=== PATIENT | female | born 1955 | race Caucasian/White ===

== ENCOUNTER 2023-04-15 11:54 | Emergency (ER) | payer MEDICARE, BC ==
[2023-04-15 12:10] VITALS: BP 130/76; O2SAT 98
--- NOTE | 2023-04-15 12:32 | ED Physician Documentation ---
PD HPI SKIN - Stated complaint Stated Complaint: - Chief complaint Chief Complaint: Wound - History obtained from History obtained from: Patient - History of Present Illness Timing - onset: How many days ago (3) Timing - duration: Days (3) Timing - details: Gradual onset, Still present (noted redness, tender swelling right pubic area 3 days ago that has increased. It did have some drainage last night and has continued to weep greyish, odorous fluid into today. Went to Walk In and referred to ER for potential I&D.) Review of Systems Constitutional: denies: Fever, Chills GI: denies: Nausea, Vomiting PD PAST MEDICAL HISTORY - Present Medications Home Medications: Ambulatory Orders Medication Instructions Recorded Confirmed Atorvastatin [Lipitor] 20 mg PO DAILY 04/15/23 Doxycycline Hyclate 100 mg PO BID 7 Days #14 cap 04/15/23 Levothyroxine [Synthroid] 120 mcg PO DAILY 04/15/23 Lisinopril [Zestril] 20 mg PO DAILY 04/15/23 04/15/23 - Allergies Allergies/Adverse Reactions: Allergies Allergy/AdvReac Type Severity Reaction Status Date / Time No Known Drug Allergies Allergy Verified 04/15/23 12:10 PD ED PE NORMAL - Vitals Vital signs reviewed: Yes - General General: Alert and oriented X 3, No acute distress, Well developed/nourished - Cardiac Cardiac: RRR, No murmur - Respiratory Respiratory: Clear bilaterally - Abdomen Abdomen: Normal bowel sounds, Non distended, Other (abd itself is not tender. The pubis area with redness and swelling acors the pubis . There is induration, firmness and local tender about 5-6 cm diameter right side. There is poiting mildly of the swelling with mild draiange with palpation of odorous ambrose fluid. Culture obtained. ) - Derm Derm: Normal color, Warm and dry, Other (bedside US of the area showed inflammation of tissue with fluid tracking in fatty tissue but no localized fluid collections. ) - Neuro Neuro: Alert and oriented X 3, No motor deficit, Normal speech Results - Vitals Vitals: Vital Signs - 24 hr 04/15/23 04/15/23 12:03 14:00 Temperature 36.6 C Heart Rate 77 Respiratory 18 18 Rate Blood Pressure 130/76 O2 Saturation 98 Oxygen O2 Source Room air - Labs Labs: Microbiology 04/15/23 13:11 Wound Culture - Preliminary Abdomen PD Medical Decision Making - ED course Complexity details: reviewed results (bedside U/S by me showing inflammation but no residual fluid collection. discussed with patient that fluid might recollect and need I&D but seems spontaneously draining enough for now. ), considered differential (seeems c/w abscess presume initially at seat gland at pubis. Not labial. Area of redness is across much of pubic area but firm/indurated is about 5-6 cm without fluctuance. Skin small opening with mild drainage, cultured. Bedside U/S showed swelling/induration but no fluid pocket for draining.), d/w patient ED course: presume likely staph and will target abx that way. Departure - Departure Disposition: 01 Home, Self Care Clinical Impression: Abscess, Soft tissue abscess of inguinal region Condition: Stable Record reviewed to determine appropriate education?: Yes Prescriptions: Doxycycline Hyclate 100 mg PO BID 7 Days #14 cap Comments: On bedside ultrasound, I could see a lot of inflammation in through that area but I did not see any localized fluid pockets. It was more within the tissue (sort of like a soaked sponge). As such did not see a region that would need incision and drainage. There is some drainage coming out from the tissue already. It likely decompressed itself the for the most part this morning. There is obviously still infection in the area. Use doxycycline antibiotic twice daily for the next week. Warm moist compresses to the area periodically to improve blood flow and help promote drainage. Gentle massaging around the area to promote any drainage from the small hole already there. Tylenol or ibuprofen or naproxen as needed for pain. I would suggest naproxen or ibuprofen regularly 2 to 3 tablets [id number] 3 times daily with food. To that add Tylenol every 4-6 hours if needed for pain. I would anticipate decreasing swelling, tenderness, redness over the next few days and resolved by 4 to 5 days though there may still be some firmness of tissue there for a week or 2 but the infection portion should seem gone. Recheck if not improving well over the next few days or if increasing size or if it has not fully resolved by the end of the antibiotic course. I sent your prescription to [facility] in [place]. Forms: PCP List Discharge Date/Time: 04/15/23 14:00
[2023-04-15] MEDS ORDERED: IBUPROFEN 800 MG TABLET PO STA (13:42)
[2023-04-15] MEDS ORDERED: DOXYCYCLINE 100 MG TABLET PO STA (13:42)
== END 2023-04-15 14:00 | disposition home or self-care (01) ==
LOC: ED 11:54
DX: L02.214 Cutaneous abscess of groin (principal); Z79.899 Other long term (current) drug therapy
CPT/HCPCS: 87070; 87077; 87181; 87205; 99283; A9270